=== PATIENT | male | born 1930 | race Caucasian/White ===

== ENCOUNTER 2019-07-08 22:09 | Emergency (ER) | payer MEDICARE, OTHER ==
[~2019-07-08] VITALS: Ht 188 cm; Wt 104.3 kg
[~2019-07-08 22:09] MED LIST: ASPIR 8181 MG; ASPIR-LOW81 MG PO; ASPIRIN81 MG PO; CARVEDILOL3.125 MG PO; CIPRO500 MG PO; CRESTOR10 MG; CRESTOR10 MG PO; D-3; LASIX40 MG PO; LEVOTHYROXINE50 MCG PO; LISINOPRIL2.5 MG PO; MAGNESIUM CHLORIDE PO; PLAVIX75 MG PO; POTASSIUM CHLO10 MEQ PO; PRENATAL COMPL1 EACH PO; TAMSULOSIN PO; ULTRAM50 MG PO; VITAMIN E PO; ZANTAC 7575 MG PO
--- NOTE | 2019-07-08 23:59 | Diagnostic Imaging Report ---
Examination: Single AP view of the chest. COMPARISON: 04/11/2015 INDICATION: Right-sided chest pain DISCUSSION: Lung volumes are low. There is linear opacity in the lung bases compatible with subsegmental atelectasis. No focal airspace consolidation or pneumothorax. Tortuous thoracic aorta with atherosclerotic calcification. Normal heart size. No overt pulmonary edema. No acute osseous abnormality. Increased density of the posterior left seventh rib is likely due to summation of overlying vascular structures. Degenerative changes of the acromioclavicular and glenohumeral joints. IMPRESSION: Low lung volumes with subsegmental atelectasis in the bases. Otherwise no acute cardiopulmonary abnormality. Signed by: Dr. Deejay Yadav M.D. on 07/08/2019 11:56 PM
== END 2019-07-09 03:40 | disposition home or self-care (01) ==
LOC: ER 22:09 → EDBD 22:09 → ER 07-09 03:40
DX: S20.211A Contusion of right front wall of thorax, initial encounter (principal); S00.83XA Contusion of other part of head, initial encounter; S60.512A Abrasion of left hand, initial encounter; Y04.0XXA Assault by unarmed brawl or fight, initial encounter; Y92.128 Other place in nursing home as the place of occurrence of the external cause; N18.9 Chronic kidney disease, unspecified; I50.9 Heart failure, unspecified; E78.5 Hyperlipidemia, unspecified; E03.9 Hypothyroidism, unspecified; D64.9 Anemia, unspecified; K21.9 Gastro-esophageal reflux disease without esophagitis
CPT/HCPCS: 71046; 93005; 99284

== ENCOUNTER → 2021-03-06 | Day surgery (SDC) | payer MEDICARE, OTHER ==
[~2021-03-06] MED LIST changes: +ALDACTONE50 MG PO; +AMMONIUM LACTATE1 ML TOP; +B&O 60MG R/S 60 MG SUPP PR ONE; +CARAFATE1 GM PO; +CEFTRIAXONE SOD 1 GM VIAL ONE; +COLACE100 MG PO; +DEXAMETHASONE SOD PHOS INJ 4 MG/ML VIAL ONE; +DULCOLAX SUPP10 MG RC; +ENTRESTO 24 MG1 EACH PO; +FENTANYL CITRATE/PF 100MCG/2 ML INJ ONE; +FEROSUL325 MG PO; +FINASTERIDE5 MG PO; +FLOMAX0.4 MG PO; +FLONASE ALLERG9.9 ML INH; +FOLIC ACID0.4 MG PO; +FREEZE IT RE113.4 GM TOP; +FUROSEMIDE40 MG PO; +IOPAMIDOL 300MG/ML 50ML INFUS..BTL IV ONE; +LEVOTHYROXINE88 MCG PO; +LIDOCAINE HCL 2% LOCAL INJ 5 ML SDV VIAL INJ ONE; +LOSARTAN POTASS25 MG PO; +MAGNESIUM OXID400 MG PO; +MELATONIN3 M1 PO; +MIRALAX17 GM PO; +MUCINEX DM ER1 EACH PO; +MUPIROCIN22 GM TOP; +NAMENDA10 MG PO; +ONDANSETRON HCL INJ 2MG/ML 2ML 2 MG/ML VIAL ONE; +ONDANSETRON ODT4 MG PO; +PHENYLEPHRINE HCL 1% 10 MG/ML VIAL ONE; +POTASSIUM CHLO10 ME1 PO; +POVIDONE IODINE 0.05% 0.05 % ML PO ONE; +PROPOFOL IV EMULSION 10 MG/ML 20 ML VIAL ONE; +PROTONIX20 MG PO; +PROTONIX40 MG PO; +SEVOFLURANE INHAL SOLN 250 ML PEN BTL ONE; +SLOW-MAG64 MG PO; +SODIUM CHLORIDE 0.9% 50ML 50 ML ONE; +SPIRONOLACTONE25 MG PO; +TRAMADOL HCL100 MG PO; +TYLENOL EXTRA500 MG PO; +VITAMIN B-121000 MCG SQ; +VITAMIN B122500 MCG PO; +VITAMIN D3250 MCG PO; +Vitamin D-3 PO
[2021-03-06 06:53] LABS: BASOPHILS % 0.2 % (0.0-1.0); EOSINOPHILS % 0.4 % (0.0-6.0); HEMOGLOBIN 8.9 g/dL (14.0-18.0); LYMPHOCYTES # (AUTO) 1.3 (1.0-3.2); MEAN CORPUSCULAR HEMOGLOBIN 27.4 pg (28-32); MEAN CORPUSCULAR HGB CONC 30.7 g/dL (31-35); MEAN CORPUSCULAR VOLUME 89.2 fL (81-99); MONOCYTES # (AUTO) 0.9 (0.2-0.8); MONOCYTES % 17.5 % (4.4-11.3); NEUTROPHILS # (AUTO) 2.8 (2.1-6.9); NEUTROPHILS % 55.3 % (38.7-80.0); PLATELET COUNT 165 x10e3/uL (140-360); RED BLOOD COUNT 3.25 x10e6/uL (4.3-5.7); RED CELL DISTRIBUTION WIDTH 18.2 % (11.7-14.4)
[2021-03-06 07:57] LABS: ANION GAP 14.6 mmol/L (8-16); BLOOD UREA NITROGEN 21 mg/dL (7-26); BUN/CREATININE RATIO 19 (6-25); CALCIUM 8.5 mg/dL (8.4-10.2); CARBON DIOXIDE 19 mmol/L (22-29); CHLORIDE 105 mmol/L (98-107); CREATININE, SERUM 1.12 mg/dL (0.72-1.25); EST GLOMERULAR FILTRATION RATE > 60 ML/MIN (60-); GLUCOSE 107 mg/dL (74-118); POTASSIUM 4.6 mmol/L (3.5-5.1); SODIUM 134 mmol/L (136-145)
[2021-03-06 13:00] VITALS: BP 120/54
== END | disposition home or self-care (01) ==
LOC: OR 06:22 → EDBD 08:30
PROVIDERS: ATTEND Urology
DX: C67.9 Malignant neoplasm of bladder, unspecified (principal); N42.89 Other specified disorders of prostate; I25.10 Atherosclerotic heart disease of native coronary artery without angina pectoris; I10 Essential (primary) hypertension; I25.2 Old myocardial infarction; E03.9 Hypothyroidism, unspecified; K21.9 Gastro-esophageal reflux disease without esophagitis; F03.90 Unspecified dementia, unspecified severity, without behavioral disturbance, psychotic disturbance, mood disturbance, and anxiety; Z20.822 Contact with and (suspected) exposure to COVID-19; Z79.02 Long term (current) use of antithrombotics/antiplatelets; Z68.36 Body mass index [BMI] 36.0-36.9, adult
CPT/HCPCS: 36415; 52214; 71046; 80048; 85025; 88305; 88342; 93005; C1758; J0696; J1100; J2001; J2370; J2405; J2704; J3010; U0002

== ENCOUNTER 2021-03-17 09:52 | Inpatient (IN) | payer MEDICARE, OTHER ==
[~2021-03-17] VITALS: Ht 182.9 cm; Wt 104.3 kg
[~2021-03-17 09:52] MED LIST changes: -ALDACTONE50 MG PO; -B&O 60MG R/S 60 MG SUPP PR ONE; -CARAFATE1 GM PO; -CEFTRIAXONE SOD 1 GM VIAL ONE; -DEXAMETHASONE SOD PHOS INJ 4 MG/ML VIAL ONE; -FENTANYL CITRATE/PF 100MCG/2 ML INJ ONE; -FLONASE ALLERG9.9 ML INH; -IOPAMIDOL 300MG/ML 50ML INFUS..BTL IV ONE; -LIDOCAINE HCL 2% LOCAL INJ 5 ML SDV VIAL INJ ONE; -LOSARTAN POTASS25 MG PO; -MAGNESIUM OXID400 MG PO; -MELATONIN3 M1 PO; -MUCINEX DM ER1 EACH PO; -MUPIROCIN22 GM TOP; -ONDANSETRON HCL INJ 2MG/ML 2ML 2 MG/ML VIAL ONE; -PHENYLEPHRINE HCL 1% 10 MG/ML VIAL ONE; -POVIDONE IODINE 0.05% 0.05 % ML PO ONE; -PROPOFOL IV EMULSION 10 MG/ML 20 ML VIAL ONE; -PROTONIX20 MG PO; -SEVOFLURANE INHAL SOLN 250 ML PEN BTL ONE; -SODIUM CHLORIDE 0.9% 50ML 50 ML ONE; -Vitamin D-3 PO
[2021-03-17] MEDS ORDERED: SODIUM CHLORIDE 0.9% 1000ML 1,000 ML IV STA (10:22)
[2021-03-17 10:49] LABS: BASOPHILS % 0.1 % (0.0-1.0); HEMATOCRIT 29.5 % (38.2-49.6); HEMOGLOBIN 8.8 g/dL (14.0-18.0); LYMPHOCYTES # (AUTO) 0.9 (1.0-3.2); LYMPHOCYTES % 13.4 % (18.0-39.1); MEAN CORPUSCULAR HGB CONC 29.8 g/dL (31-35); MEAN CORPUSCULAR VOLUME 90.5 fL (81-99); MONOCYTES # (AUTO) 0.9 (0.2-0.8); MONOCYTES % 12.4 % (4.4-11.3); NEUTROPHILS # (AUTO) 4.7 (2.1-6.9); NEUTROPHILS % 67.5 % (38.7-80.0); PLATELET COUNT 256 x10e3/uL (140-360); RED BLOOD COUNT 3.26 x10e6/uL (4.3-5.7); RED CELL DISTRIBUTION WIDTH 18.1 % (11.7-14.4)
[2021-03-17 10:54] LABS: CLARITY,URINE SL CLOUDY (CLEAR); COLOR,URINE YELLOW (YELLOW); LEUKOCYTE ESTERASE ,URINE SMALL (NEGATIVE); NITRITE,URINE NEGATIVE (NEGATIVE); PROTEIN,URINE DIPSTICK 2+ (NEGATIVE); URINE UROBILINOGEN 0.2 mg/dL (0.2 - 1)
[2021-03-17 10:55] LABS: KETONES,URINE TRACE (NEGATIVE)
[2021-03-17 11:07] LABS: INR 1.03; PARTIAL THROMBOPLASTIN TIME 32.5 seconds (23.8-35.5); PROTHROMBIN TIME 14.1 seconds (11.9-14.5)
[2021-03-17 11:11] LABS: ALBUMIN 1.8 g/dL (3.5-5.0); ALBUMIN/GLOBULIN RATIO 0.4 (0.8-2.0); ANION GAP 18.1 mmol/L (8-16); BACTERIA,URINE FEW /HPF; CALCIUM 8.9 mg/dL (8.4-10.2); CREATININE, SERUM 1.93 mg/dL (0.72-1.25); EPITHELIAL CELLS,URINE FEW /LPF; MAGNESIUM 2.1 MG/DL (1.3-2.1)
[2021-03-17 11:14] LABS: AMORPHOUS SEDIMENT,URINE FEW (FEW); RBC,URINE >50 /HPF (0-5); WBC,URINE (MAN) 21-50 /HPF (0-5)
[2021-03-17 11:17] LABS: CREATINE KINASE MB 0.8 ng/mL (0-5.0)
[2021-03-17 11:18] LABS: B-TYPE NATRIURETIC PEPTIDE2 89.6 pg/mL (0-100)
[2021-03-17 11:19] LABS: POTASSIUM 6.1 mmol/L (3.5-5.1)
[2021-03-17] MEDS ORDERED: DEXTROSE 50% SYRINGE 50 ML IV STA (11:44)
[2021-03-17] MEDS ORDERED: INSULIN REGULAR, HUMAN 100 UNIT/1 ML 3ML VIAL IV ONE (11:45)
[2021-03-17] MEDS ORDERED: SODIUM BICARBONATE 8.4% INJ 50 ML SYR IV STA (11:47)
[2021-03-17 12:00] LABS: ANISOCYTOSIS SLIGHT; EOSINOPHILS % (MANUAL) 1 % (0-7); LYMPHOCYTES % (MANUAL) 12 % (19-48); MONOCYTES % (MANUAL) 7 % (3.4-9.0); MYELOCYTES % (MANUAL) 4 % (0-0); NEUTROPHILS % (MANUAL) 76 % (40-74); PLATELET ESTIMATE ADEQUATE; PLATELET MORPHOLOGY COMMENT NORMAL
[2021-03-17 12:01] LABS: RBC MORPHOLOGY COMMENT NORMAL
[2021-03-17] MEDS: MEROPENEM 500MG/ NS 50ML 50 ML IV SCH ×2 (12:43→21:59)
[2021-03-17] MEDS ORDERED: ONDANSETRON HCL INJ 2MG/ML 2ML 2 MG/ML VIAL IV PRN (14:45)
[2021-03-17] MEDS ORDERED: SODIUM CHLORIDE 0.9% 1000ML 1,000 ML IV SCH (14:45)
[2021-03-17] MEDS ORDERED: MORPHINE SULFATE INJ 2 MG/ML SYR IV PRN (14:45)
[2021-03-17 16:52] VITALS: BP 93/6
[2021-03-17 17:53] VITALS: BP 93/6
[2021-03-17 18:03] VITALS: BP 93/6
[2021-03-17 18:45] LABS: CREATINE KINASE MB 0.9 ng/mL (0-5.0)
[2021-03-17 20:00] VITALS: BP 102/49
[2021-03-17] MEDS: TRAMADOL HCL 50 MG TAB PO PRN (22:49)
[2021-03-17 23:32] LABS: CREATINE KINASE MB 0.8 ng/mL (0-5.0)
[2021-03-18] VITALS (9 sets, daily range): BP systolic 89–122; BP diastolic 45–53
[2021-03-18 05:01] LABS: BASOPHILS % 0.3 % (0.0-1.0); EOSINOPHILS % 0.5 % (0.0-6.0); HEMOGLOBIN 7.8 g/dL (14.0-18.0); LYMPHOCYTES # (AUTO) 1.3 (1.0-3.2); LYMPHOCYTES % 21.6 % (18.0-39.1); MEAN CORPUSCULAR HEMOGLOBIN 26.8 pg (28-32); MEAN CORPUSCULAR VOLUME 89.3 fL (81-99); MONOCYTES # (AUTO) 0.9 (0.2-0.8); MONOCYTES % 14.5 % (4.4-11.3); NEUTROPHILS # (AUTO) 3.5 (2.1-6.9); NEUTROPHILS % 56.4 % (38.7-80.0); PLATELET COUNT 219 x10e3/uL (140-360); RED BLOOD COUNT 2.91 x10e6/uL (4.3-5.7); RED CELL DISTRIBUTION WIDTH 18.4 % (11.7-14.4)
[2021-03-18 05:17] LABS: ALBUMIN 1.5 g/dL (3.5-5.0); ALBUMIN/GLOBULIN RATIO 0.4 (0.8-2.0); ANION GAP 14.3 mmol/L (8-16); CALCIUM 8.6 mg/dL (8.4-10.2); CREATININE, SERUM 1.48 mg/dL (0.72-1.25); POTASSIUM 5.3 mmol/L (3.5-5.1)
[2021-03-18 05:40] LABS: CREATINE KINASE MB 0.7 ng/mL (0-5.0)
[2021-03-18 07:26] LABS: ANISOCYTOSIS SLIGHT; EOSINOPHILS % (MANUAL) 1 % (0-7); LYMPHOCYTES % (MANUAL) 19 % (19-48); MONOCYTES % (MANUAL) 12 % (3.4-9.0); MYELOCYTES % (MANUAL) 2 % (0-0); NEUTROPHILS % (MANUAL) 66 % (40-74); PLATELET ESTIMATE ADEQUATE; PLATELET MORPHOLOGY COMMENT NORMAL
[2021-03-18 07:27] LABS: OVALOCYTES FEW; RBC MORPHOLOGY COMMENT NORMAL; TEAR DROP CELLS FEW
[2021-03-18] MEDS ORDERED: MELATONIN 3 MG TAB PO PRN (07:45)
[2021-03-18] MEDS ORDERED: FUROSEMIDE INJ 10 MG/ML 4 ML VIAL IV ONE (08:00)
[2021-03-18] MEDS ORDERED: CEFTRIAXONE SOD 1 GM VIAL IV SCH (08:00)
[2021-03-18] MEDS: ASPIRIN 81 MG CHEW TAB PO SCH (08:25)
[2021-03-18] MEDS: MAGNESIUM OXIDE 400 MG TAB PO SCH (08:25)
[2021-03-18] MEDS: CARVEDILOL 3.125 MG TAB PO SCH ×2 (08:26→16:10)
[2021-03-18] MEDS: CLOPIDOGREL BISULFATE 75 MG TAB PO SCH (08:28)
[2021-03-18] MEDS: FERROUS SULFATE 325 MG TAB PO SCH (08:28)
[2021-03-18] MEDS: CHOLECALCIFEROL 1,000 UNIT TAB PO SCH (08:28)
[2021-03-18] MEDS: LOSARTAN POTASSIUM 25 MG TAB PO SCH (08:29)
[2021-03-18] MEDS: LEVOTHYROXINE SODIUM 88 MCG TAB PO SCH (08:35)
[2021-03-18] MEDS: CEFTRIAXONE SOD 1 GM in SODIUM CHLORIDE 0.9% 50ML 50 ML IV SCH (08:35)
[2021-03-18] MEDS ORDERED: SODIUM CHLORIDE 0.9% 50ML 50 ML ONE (08:49)
[2021-03-18] MEDS ORDERED: FOLIC ACID 1 MG TAB PO SCH (09:00)
[2021-03-18] MEDS ORDERED: SPIRONOLACTONE 25 MG TAB PO SCH (09:00)
[2021-03-18] MEDS ORDERED: PANTOPRAZOLE SODIUM 40 MG SUSPDR.PKT PO SCH (09:00)
[2021-03-18] MEDS: TRAMADOL HCL 50 MG TAB PO PRN (09:41)
[2021-03-18] MEDS: PANTOPRAZOLE SOD 40 MG TABEC PO SCH (09:51)
[2021-03-18] MEDS ORDERED: LOSARTAN POTASS25 MG PO (09:52)
[2021-03-18] MEDS ORDERED: MELATONIN3 M1 PO (09:52)
[2021-03-18] MEDS ORDERED: MAGNESIUM OXID400 MG PO (09:52)
[2021-03-18] MEDS ORDERED: CARAFATE1 GM PO (09:52)
[2021-03-18] MEDS ORDERED: ALDACTONE50 MG PO (09:52)
[2021-03-18] MEDS ORDERED: CRESTOR10 MG PO (09:52)
[2021-03-18] MEDS ORDERED: Vitamin D-3 PO (09:52)
[2021-03-18] MEDS ORDERED: PROTONIX20 MG PO (09:52)
[2021-03-18] MEDS ORDERED: MUPIROCIN22 GM TOP (09:52)
[2021-03-18] MEDS ORDERED: FLONASE ALLERG9.9 ML INH (09:52)
[2021-03-18] MEDS ORDERED: MUCINEX DM ER1 EACH PO (09:52)
[2021-03-18] MEDS ORDERED: ASPIRIN81 MG PO (09:52)
[2021-03-18] MEDS: FOLIC ACID 1 MG TAB PO SCH (09:54)
[2021-03-18] MEDS ORDERED: POTASSIUM CHLO10 ME1 PO (09:55)
[2021-03-18] MEDS ORDERED: SUCRALFATE 1 GM TAB PO SCH (16:30)
[2021-03-18] MEDS: SUCRALFATE 1 GM TAB PO SCH (16:34)
[2021-03-18] MEDS ORDERED: SIMVASTATIN 40 MG TAB PO SCH (21:00)
[2021-03-18] MEDS: SIMVASTATIN 20 MG TAB PO SCH (21:19)
[2021-03-19] VITALS (8 sets, daily range): BP systolic 96–144; BP diastolic 45–76
[2021-03-19 05:02] LABS: BASOPHILS % 0.2 % (0.0-1.0); EOSINOPHILS % 0.4 % (0.0-6.0); HEMATOCRIT 26.1 % (38.2-49.6); LYMPHOCYTES # (AUTO) 1.2 (1.0-3.2); LYMPHOCYTES % 23.2 % (18.0-39.1); MEAN CORPUSCULAR HEMOGLOBIN 27.1 pg (28-32); MEAN CORPUSCULAR HGB CONC 30.7 g/dL (31-35); MEAN CORPUSCULAR VOLUME 88.5 fL (81-99); MONOCYTES # (AUTO) 0.8 (0.2-0.8); MONOCYTES % 15.2 % (4.4-11.3); NEUTROPHILS # (AUTO) 2.7 (2.1-6.9); NEUTROPHILS % 53.7 % (38.7-80.0); PLATELET COUNT 223 x10e3/uL (140-360); RED BLOOD COUNT 2.95 x10e6/uL (4.3-5.7); RED CELL DISTRIBUTION WIDTH 18.2 % (11.7-14.4)
[2021-03-19 05:22] LABS: ALBUMIN 1.5 g/dL (3.5-5.0); ALBUMIN/GLOBULIN RATIO 0.4 (0.8-2.0); CALCIUM 8.7 mg/dL (8.4-10.2); CREATININE, SERUM 1.17 mg/dL (0.72-1.25); MAGNESIUM 2.1 MG/DL (1.3-2.1)
[2021-03-19] MEDS: LEVOTHYROXINE SODIUM 88 MCG TAB PO SCH (06:30)
[2021-03-19] MEDS: SUCRALFATE 1 GM TAB PO SCH ×2 (08:56→17:47)
[2021-03-19] MEDS: CARVEDILOL 3.125 MG TAB PO SCH ×2 (08:57→17:00)
[2021-03-19] MEDS: LOSARTAN POTASSIUM 25 MG TAB PO SCH (08:57)
[2021-03-19] MEDS: ASPIRIN 81 MG CHEW TAB PO SCH (08:57)
[2021-03-19] MEDS: CEFTRIAXONE SOD 1 GM in SODIUM CHLORIDE 0.9% 50ML 50 ML IV SCH (08:57)
[2021-03-19] MEDS: PANTOPRAZOLE SOD 40 MG TABEC PO SCH (08:58)
[2021-03-19] MEDS: CHOLECALCIFEROL 1,000 UNIT TAB PO SCH (08:58)
[2021-03-19] MEDS: CLOPIDOGREL BISULFATE 75 MG TAB PO SCH (08:58)
[2021-03-19] MEDS: MAGNESIUM OXIDE 400 MG TAB PO SCH (08:58)
[2021-03-19] MEDS: FOLIC ACID 1 MG TAB PO SCH (08:58)
[2021-03-19] MEDS: FERROUS SULFATE 325 MG TAB PO SCH (08:58)
[2021-03-19 10:13] LABS: PSA FREE >50.00 ng/mL
[2021-03-19] MEDS: HYDROCODONE/APAP 7.5MG-325MG 1 EA TAB PO PRN (16:31)
[2021-03-19] MEDS: SIMVASTATIN 20 MG TAB PO SCH (21:53)
[2021-03-20] VITALS (8 sets, daily range): BP systolic 95–128; BP diastolic 51–70
[2021-03-20] MEDS: HYDROCODONE/APAP 7.5MG-325MG 1 EA TAB PO PRN ×3 (00:20→15:36)
[2021-03-20] MEDS: LEVOTHYROXINE SODIUM 88 MCG TAB PO SCH (05:18)
[2021-03-20] MEDS: SUCRALFATE 1 GM TAB PO SCH ×2 (08:12→16:30)
[2021-03-20] MEDS: ASPIRIN 81 MG CHEW TAB PO SCH (08:12)
[2021-03-20] MEDS: CEFTRIAXONE SOD 1 GM in SODIUM CHLORIDE 0.9% 50ML 50 ML IV SCH (08:12)
[2021-03-20] MEDS: CARVEDILOL 3.125 MG TAB PO SCH ×2 (08:12→17:00)
[2021-03-20] MEDS: FOLIC ACID 1 MG TAB PO SCH (08:13)
[2021-03-20] MEDS: CHOLECALCIFEROL 1,000 UNIT TAB PO SCH (08:13)
[2021-03-20] MEDS: FERROUS SULFATE 325 MG TAB PO SCH (08:13)
[2021-03-20] MEDS: PANTOPRAZOLE SOD 40 MG TABEC PO SCH (08:13)
[2021-03-20] MEDS: LOSARTAN POTASSIUM 25 MG TAB PO SCH (08:13)
[2021-03-20] MEDS: CLOPIDOGREL BISULFATE 75 MG TAB PO SCH (08:13)
[2021-03-20] MEDS: MAGNESIUM OXIDE 400 MG TAB PO SCH (08:13)
[2021-03-20] MEDS ORDERED: SODIUM CHLORIDE 0.9% 50ML 50 ML ONE (08:44)
[2021-03-20] MEDS ORDERED: AMPICILLIN TRIHYDRATE 250 MG CAP PO SCH (12:00)
[2021-03-20] MEDS: SIMVASTATIN 20 MG TAB PO SCH (22:02)
[2021-03-21] VITALS (7 sets, daily range): BP systolic 89–167; BP diastolic 48–112
[2021-03-21] MEDS: LEVOTHYROXINE SODIUM 88 MCG TAB PO SCH (05:16)
[2021-03-21 06:15] LABS: BASOPHILS % 0.2 % (0.0-1.0); EOSINOPHILS % 0.4 % (0.0-6.0); HEMATOCRIT 26.6 % (38.2-49.6); LYMPHOCYTES # (AUTO) 1.2 (1.0-3.2); MEAN CORPUSCULAR HEMOGLOBIN 26.9 pg (28-32); MEAN CORPUSCULAR HGB CONC 30.1 g/dL (31-35); MEAN CORPUSCULAR VOLUME 89.6 fL (81-99); MONOCYTES # (AUTO) 0.8 (0.2-0.8); MONOCYTES % 15.6 % (4.4-11.3); NEUTROPHILS # (AUTO) 2.9 (2.1-6.9); NEUTROPHILS % 54.9 % (38.7-80.0); PLATELET COUNT 218 x10e3/uL (140-360); RED BLOOD COUNT 2.97 x10e6/uL (4.3-5.7)
[2021-03-21 06:45] LABS: ANION GAP 12.9 mmol/L (8-16); BLOOD UREA NITROGEN 34 mg/dL (7-26); BUN/CREATININE RATIO 31 (6-25); CALCIUM 8.6 mg/dL (8.4-10.2); CARBON DIOXIDE 19 mmol/L (22-29); CHLORIDE 108 mmol/L (98-107); CREATININE, SERUM 1.09 mg/dL (0.72-1.25); EST GLOMERULAR FILTRATION RATE > 60 ML/MIN (60-); GLUCOSE 110 mg/dL (74-118); POTASSIUM 4.9 mmol/L (3.5-5.1); SODIUM 135 mmol/L (136-145)
[2021-03-21] MEDS: SUCRALFATE 1 GM TAB PO SCH ×2 (07:30→16:30)
[2021-03-21] MEDS: AMPICILLIN TRIHYDRATE 500MG CAPSULE PO SCH ×2 (08:00→16:00)
[2021-03-21] MEDS: ASPIRIN 81 MG CHEW TAB PO SCH (09:00)
[2021-03-21] MEDS: MAGNESIUM OXIDE 400 MG TAB PO SCH (09:00)
[2021-03-21] MEDS: CARVEDILOL 3.125 MG TAB PO SCH ×2 (09:00→16:31)
[2021-03-21] MEDS: FOLIC ACID 1 MG TAB PO SCH (09:00)
[2021-03-21] MEDS: LOSARTAN POTASSIUM 25 MG TAB PO SCH (09:00)
[2021-03-21] MEDS: PANTOPRAZOLE SOD 40 MG TABEC PO SCH (09:00)
[2021-03-21] MEDS: FERROUS SULFATE 325 MG TAB PO SCH (09:00)
[2021-03-21] MEDS: CLOPIDOGREL BISULFATE 75 MG TAB PO SCH (09:00)
[2021-03-21] MEDS: CHOLECALCIFEROL 1,000 UNIT TAB PO SCH (09:00)
[2021-03-21] MEDS: HYDROCODONE/APAP 7.5MG-325MG 1 EA TAB PO PRN (11:35)
[2021-03-21] MEDS ORDERED: ONDANSETRON HCL 4 MG ORAL DISINTEGRATING TAB PO PRN (13:15)
[2021-03-21] MEDS ORDERED: Cholecalciferol PO (15:44)
[2021-03-21] MEDS ORDERED: ULTRAM 50MG50 MG PO (15:44)
[2021-03-21] MEDS ORDERED: AMPICILLIN TRI500 MG PO (15:44)
[2021-03-21] MEDS ORDERED: HYDROCODON-ACE1 EA12 PO (15:44)
== END 2021-03-21 20:00 | DRG 291 ==
LOC: ER 10:06 → ERHOLD 14:43 → MED/SURG2 16:34
PROVIDERS: ADMIT Internal Medicine; ATTEND Internal Medicine
DX: I13.0 Hypertensive heart and chronic kidney disease with heart failure and stage 1 through stage 4 chronic kidney disease, or unspecified chronic kidney disease (principal); G93.41 Metabolic encephalopathy; I50.43 Acute on chronic combined systolic (congestive) and diastolic (congestive) heart failure; N39.0 Urinary tract infection, site not specified; C79.51 Secondary malignant neoplasm of bone; E11.22 Type 2 diabetes mellitus with diabetic chronic kidney disease; N18.30 Chronic kidney disease, stage 3 unspecified; E87.5 Hyperkalemia; E03.9 Hypothyroidism, unspecified; D64.9 Anemia, unspecified; K21.9 Gastro-esophageal reflux disease without esophagitis; E78.5 Hyperlipidemia, unspecified; B95.2 Enterococcus as the cause of diseases classified elsewhere; C61 Malignant neoplasm of prostate; Z20.822 Contact with and (suspected) exposure to COVID-19; D63.8 Anemia in other chronic diseases classified elsewhere
CPT/HCPCS: 36415; 70450; 71045; 71250; 72125; 80048; 80053; 81001; 82140; 82550; 82553; 83036; 83605; 83735; 83880; 84152; 84153; 84484; 85025; 85610; 85730; 87040; 87086; 87186; 93005; 93306; 97139; 99251; 99284; J0696; J1817; J1940; J2270; J7030; J7799; U0002